=== PATIENT | male | born 1960 | race Caucasian/White ===

== ENCOUNTER 2021-02-14 13:07 | Emergency (ER) | payer OTHER ==
[2021-02-14] MEDS ORDERED: Acetaminophen 500 MG TAB ONE (15:12)
== END 2021-02-14 15:20 ==
LOC: ERS 13:07
DX: S20.212A Contusion of left front wall of thorax, initial encounter (principal); W19.XXXA Unspecified fall, initial encounter
CPT/HCPCS: 93005